=== PATIENT | male | born 1985 | race Caucasian/White ===

== ENCOUNTER 2020-02-29 09:35 | Outpatient (CLI) | payer BC, SELFPAY ==
[2020-02-29 10:17] LABS: Add Urine Microscopic? YES; Appearance Urine Clear (Clear); Bilirubin Urine Negative (Negative); Blood Urine Negative (Negative); Color Urine Yellow (Yellow); Glucose Urine UA Negative (Negative); Ketones Urine Negative (Negative); Leukocyte Esterase Ur Negative LEU/UL (NEGATIVE); Mucus Urine Heavy /lpf; Nitrate Urine Negative (Negative); Protein Urine Negative (Negative); RBC Urine 0-2 /hpf (0-2); Specific Grav Ur 1.029 (1.001-1.035); WBC Urine 0-3 /hpf (0-3)
== END 2020-02-29 09:36 | disposition home or self-care (01) ==
PROVIDERS: PCP Internal Medicine; Visit Provider Physician Assistant
DX: R30.0 Dysuria (principal)
CPT/HCPCS: 81001; 87086

== ENCOUNTER 2020-08-14 08:43 | Emergency (ER) | payer BC, SELFPAY ==
[2020-08-14] VITALS (10 sets, daily range): BP systolic 130–157; BP diastolic 75–103; PULSE 68–93; RESP 11–22; TEMP 36.7; O2SAT 93–100
--- NOTE | ~2020-08-14 | CT_ITS ---
EXAMINATION: CT soft tissue neck chest w DATE: 08/14/2020 09:57 INDICATION: Throat swelling. Dysphagia. Chest pain. TECHNIQUE: Computed tomography (CT) of the neck and chest was performed with 75 mL Omnipaque-350 intr avenous contrast. Automated exposure control and iterative reconstruction technique were employed. Th e dose-length product was 1019.55 mGy-cm. COMPARISON: CT abdomen and pelvis 09/18/2018, 08/07/2016 FINDINGS: CT NECK: The palatine tonsils are enlarged. No abscess. There is a punctate calcification in right pa latine tonsil. The epiglottis is normal. The adenoids are normal. There are no pathologically enlarge d lymph nodes. The cervical carotid arteries are normal. The orbits are normal. The paranasal sinuses are clear. The mastoid air cells are normal. The patient is edentulous. There is interbody fusion at C7-T1. CT CHEST: The lungs demonstrate minimal atelectasis in right middle lobe. There is a 3 mm nodule at l eft major fissure, likely benign. No pleural effusion. The heart size is normal. No pericardial effus ion. There is a 10 mm hyperenhancing mass in left hepatic lobe. The thoracic spine is unremarkable. IMPRESSION: 1. Enlarged palatine tonsils. No abscess. 2. 10 mm hyperenhancing liver mass. In the absence of known malignancy or chronic liver disease, this finding is likely a hemangioma or focal nodular hyperplasia. Reviewed, dictated and finalized at location A. WARE INSTALLATION ENGINEER IMPRESSION: 1. Enlarged palatine tonsils. No abscess. 2. 10 mm hyperenhancing liver mass. In the absence of known malignancy or chron ic liver disease, this finding is likely a hemangioma or focal nodular hyperpla mark.
--- NOTE | ~2020-08-14 | XR_ITS ---
EXAMINATION: XR chest 1V portable DATE: 08/14/2020 10:13 INDICATION: Shortness of breath and chest pain TECHNIQUE: frontal view of the chest was obtained. COMPARISON: Chest CT dated 08/14/2020 FINDINGS: The lungs are clear with no focal airspace opacities, pulmonary edema, pleural effusion or pneumothor ax. The cardiomediastinal silhouette is normal. Visualized bones and soft tissues are unremarkable. IMPRESSION: 1. Normal chest radiograph. Reviewed, dictated and finalized at location B. DETAILER IMPRESSION: 1. Normal chest radiograph.
--- NOTE | 2020-08-14 08:56 | ED.SOB ---
HPI - SOB/Dyspnea General Chief Complaint: Shortness of Breath/Dyspnea Stated Complaint: SOB, elevated heart rate Time Seen by Provider: 08/14/20 08:48 Source: patient Mode of arrival: ambulatory Limitations: no limitations History of Present Illness HPI Narrative: A 35-year-old male presents to the emergency department with complaints of throat pain, palpitations, racing heart and shortness of breath. Patient states that he has been dealing with tonsillitis for quite some time now. He notes that he has been on several different courses of antibiotics with no clinical improvement. Patient does endorse racing and fluttering of his heart. He states that his primary care doctor said that he needed to come into the emergency department because he has had so many antibiotics and no improvement. Related Data Allergies Allergy/AdvReac Type Severity Reaction Status Date / Time mushroom Allergy Unknown unkown Verified 08/14/20 09:57 Mushroom AdvReac Unknown Nausea and Uncoded 08/14/20 09:57 Vomiting Review of Systems Review of Systems: Narrative: CONSTITUTIONAL: Denies fever, chills, or sweats. EYES: Denies visual changes, redness, or discharge. ENT: Endorses sore throat and dysphagia. CARDIOVASCULAR: Denies chest pain, palpitations, or edema. RESPIRATORY: Denies cough or dyspnea. GASTROINTESTINAL: Denies abdominal pain, nausea, vomiting, or diarrhea. GENITOURINARY: Denies dysuria or hematuria. SKIN: Denies rash or itching. MUSCULOSKELETAL: Denies back pain, joint pain, or myalgia. NEUROLOGIC: Denies headache, numbness, dizziness, or weakness. PSYCHIATRIC: Denies anxiety or depression. PMFSH Past Medical History Medical History Meningitis Surgical History Surgical History H/O hernia repair History of dental surgery History of mandibular surgery Family History Family History Mother Diabetes mellitus Father Family history of colonic diverticulitis Social History Social History Smoking status: Current every day smoker Second hand tobacco smoke exposure: No Alcohol intake: never Substance use type: marijuana Exam Narrative: Exam Narrative: GENERAL: Well-appearing, well-nourished, and in no acute distress. HEAD: Normocephalic, atraumatic. EYES: PERRLA and EOMI. ENT: Nares clear, no rhinorrhea or epistaxis. Mucous membranes moist, endentulous. Oropharynx erythematous and edematous tonsils, slightly larger on the right. Bilateral TMs pearly buckner nonbulging NECK: Supple. No adenopathy or masses. No carotid bruits or JVD, tenderness to palpation at the left angle of the mandible CHEST: Clear to auscultation. No respiratory distress. No wheezes rales or rhonchi HEART: Regular rate and rhythm. No murmur heard. Normal peripheral pulses. ABDOMEN: Soft, nontender, nondistended, normal active bowel sounds. EXTREMITIES: Normal range of motion. No edema. SKIN: Warm, dry, no rash. NEURO: No focal deficits. Alert and oriented x3. PSYCH: Normal mood and affect. Course Vital Signs Vital signs: Vital Signs Temperature 36.7 C 08/14/20 08:54 Pulse Rate 84 08/14/20 08:54 Respiratory Rate 18 08/14/20 08:54 Blood Pressure 157/103 H 08/14/20 08:54 Pulse Oximetry 100 08/14/20 08:54 Temperature 36.7 C 08/14/20 08:54 Pulse Rate 84 08/14/20 08:54 Respiratory Rate 18 08/14/20 08:54 Blood Pressure 157/103 H 08/14/20 08:54 Pulse Oximetry 100 08/14/20 08:54 MDM - SOB/Dyspnea MDM Narrative Medical decision making narrative: In brief this 35-year-old male presented to the emergency department with complaints of sore throat and shortness of breath. Patient states that he feels his heart pounding. His labs and vitals are reassuring. Patient may be slightly dehydrated as his hemoglobin
--- NOTE | 2020-08-14 08:57 | ECG_ITS ---
Measurements Intervals [place] Rate: 105 P: 82 WI: 137 QRS: 86 QRSD: 88 T: 39 QT: 329 QTc: 436 Interpretive Statements SINUS TACHYCARDIA LEFT ATRIAL ENLARGEMENT CANNOT RULE OUT SEPTAL INFARCT, AGE INDETERMINATE BORDERLINE ST ABNORMALITY- INFERIOR LEADS BASELINE WANDER- II, III ,AVL, V2, V6 ABNORMAL ECG Electronically Signed On 08-14-2020 10:14:32 [employer]OL OPERATOR by Juan J Nino D.O.
[2020-08-14 09:05] LABS: Basophils Percent Auto 0.5 % (0.2-1.2); Eosinophils Absolute Auto 0.1 K/mm3 (0-0.3); Eosinophils Percent Auto 1.1 % (0-4.4); Hematocrit 49.7 % (42.0-52.0); Hemoglobin 17.4 g/dL (14.0-18.0); Immature Granulocyte Absolute 0.01 K/mm3 (0.00-0.031); Immature Granulocyte Percent A 0.1 % (0-0.5); Lymphocytes Absolute Auto 2.94 K/mm3 (0.9-3.2); Lymphocytes Percent Auto 39.1 % (18.3-44.2); Mean Corpuscular Volume 94.1 fl (80-100); Mean Platelet Volume 10.2 fl (7.4-10.4); Monocytes Absolute Auto 0.6 K/mm3 (0.1-0.6); Neutrophils Absolute Auto 3.8 K/mm3 (1.3-6.7); Neutrophils Percent Auto 51.2 % (45.5-73.1); Platelet Count Result 224 k/mm3 (150-375); Red Blood Count 5.28 M/mm3 (4.6-6.20); Red Cell Distribution Width 12.3 % (11.5-14.5); White Blood Count 7.5 K/mm3 (4.5-10.0)
[2020-08-14 09:16] LABS: Alanine Aminotransferase 66 U/L (4-50); Albumin Level 4.6 g/dL (3.5-5.1); Alkaline Phosphatase 105 U/L (38-126); Anion Gap 7 mmol/L (8-16); Aspartate Amino Transferase 35 U/L (17-59); Bilirubin,Total 0.9 mg/dL (0.2-1.3); Blood Urea Nitrogen 14 mg/dL (9-20); Calcium 9.4 mg/dL (8.4-10.2); Carbon Dioxide 26 mmol/L (22-30); Chloride 105 mmol/L (98-107); Estimated CRCL calculation 141 ml/min; Estimated Glomerular Filt Rate > 60; Glucose 118 mg/dL (75-110); Potassium 3.8 mmol/L (3.4-5.0); Sodium 138 mmol/L (137-145)
[2020-08-14] MEDS: LACTATED RINGERS 1,000 ML 999 ML IV CONT (10:03)
[2020-08-14] MEDS: LORazepam INJ (*CRX) 2 MG/ML VIAL 1 MG IV PUSH (10:03)
[2020-08-14] MEDS: DEXAMETHASONE SOD PHOS INJ 4 MG/ML VIAL 10 MG IV PUSH (11:22)
[2020-08-14 18:26] LABS: SARS-CoV-2 RNA PCR Negative
== END 2020-08-14 11:25 | disposition home or self-care (01) ==
PROVIDERS: Emergency Provider Emergency Medicine; PCP Physician Assistant
DX: J03.90 Acute tonsillitis, unspecified (principal); Z20.822 Contact with and (suspected) exposure to COVID-19; R16.0 Hepatomegaly, not elsewhere classified; F17.200 Nicotine dependence, unspecified, uncomplicated; R00.0 Tachycardia, unspecified; R94.31 Abnormal electrocardiogram [ECG] [EKG]
CPT/HCPCS: 36415; 70491; 71045; 71260; 80053; 85025; 93005; 96361; 96374; 96375; 99284; C9803; J1100; J2060; J7120; Q9967; U0003; U0005

== ENCOUNTER → 2020-09-09 05:59 | Outpatient (CLI) | payer BC, SELFPAY ==
[2020-09-09 19:10] LABS: SARS-CoV-2 RNA PCR Negative
== END ==
PROVIDERS: PCP Physician Assistant; Visit Provider Otolaryngology
DX: Z01.812 Encounter for preprocedural laboratory examination (principal); Z20.822 Contact with and (suspected) exposure to COVID-19
CPT/HCPCS: C9803; U0003; U0005

== ENCOUNTER 2020-09-12 01:07 | Day surgery (SDC) | payer BC, SELFPAY ==
[2020-09-06 17:59] VITALS: BMI 27.4
--- NOTE | 2020-09-11 09:26 | P.PNAN_ITS ---
Anes - Initial Pre Proc Eval Procedure: Operation Date: 09/12/20 09:45 Proposed Procedures p Tonsillectomy - Roger Khan MD Date/Time: 09/11/20 09:26 Surgeon: Roger Khan MD Pre Op Diagnosis: chronic tonsilitis Patient Data Age: 35 Gender: M Height: 1.96 m Weight: 105 kg Allergies Allergy/AdvReac Type Severity Reaction Status Date / Time mushroom Allergy Unknown Nausea and Verified 09/12/20 07:21 Vomiting bee venom protein (honey bee) Allergy Nausea Verified 09/12/20 07:21 Home Medications Medication Instructions Recorded Confirmed Type No Home Medications 09/12/20 09/12/20 History Patient hx anesthesia problems: post op nausea/vomiting Family hx anesthesia problems: none PMFSH Past Medical History Medical History Meningitis Overweight (BMI 25.0-29.9) Surgical History Surgical History H/O hernia repair History of dental surgery History of mandibular surgery Family History Family History Mother Diabetes mellitus Father Family history of colonic diverticulitis Social History Social History Smoking packs per day: 0.5 Smoking cigarettes per day: 10.0 Years smoked: 15 Smoking pack-years: 7.50 Smoking status: Current every day smoker Tobacco type: cigarettes Second hand tobacco smoke exposure: No Alcohol intake: never Substance use type: marijuana Living arrangements: with family Gender identity (if verbalized by the patient): Male Sexual Orientation (if Verbalized by the Patient): Straight or Heterosexual Spiritual care concerns: No Anes - Eval Final PreProcedure Day of Procedure 09/11/20 09:26 Patient weight: overweight Heart: regular rate and rhythm Lungs: clear to auscultation and normal air movement Airway: Mallampati scale class II Neurological: alert and oriented Last oral intake: >/= 8 hours ASA classification: II Emergent: no Anesthetic plan: proceed Anesthesia type and monitoring: general GIVS and standard monitoring Informed Consent: The patient's anesthetic plan and its attendant risks and benefits were discussed with the patient/family/POA. Questions were solicited an d answers provided to the satisfaction of the patient/family/POA.
--- NOTE | 2020-09-12 05:54 | PM.HPGS ---
History of Present Illness History of Present Illness Consent: Risks, benefits, and alternatives have been discussed and questions answered. Patient agrees to proceed with procedure. Chief complaint: chronic tonsilitis Narrative: Smooth Morse is a 35 year old male recurring episodes of tonsillitis treated ears question antibiotics Review of Systems Review of Systems: All systems reviewed & are unremarkable except as noted in HPI and below PMFSH Past Medical History Medical History Meningitis Overweight (BMI 25.0-29.9) Surgical History Surgical History H/O hernia repair History of dental surgery History of mandibular surgery Family History Family History Mother Diabetes mellitus Father Family history of colonic diverticulitis Social History Social History Smoking packs per day: 0.5 Smoking cigarettes per day: 10.0 Years smoked: 15 Smoking pack-years: 7.50 Smoking status: Current every day smoker Tobacco type: cigarettes Second hand tobacco smoke exposure: No Alcohol intake: never Substance use type: marijuana Living arrangements: with family Gender identity (if verbalized by the patient): Male Sexual Orientation (if Verbalized by the Patient): Straight or Heterosexual Spiritual care concerns: No Meds Home Medications and Allergies Home Medications Medication Instructions Recorded Confirmed Type cefixime 400 mg capsule 400 mg PO DAILY #9 cap 08/29/20 09/06/20 Rx Allergies Allergy/AdvReac Type Severity Reaction Status Date / Time mushroom Allergy Unknown Nausea and Verified 09/05/20 14:40 Vomiting bee venom protein (honey bee) Allergy Nausea Verified 09/05/20 14:40 Exam HENMT: Other: has examination reveals enlarged tonsils they are markedly cryptic in nature mouth oropharynx otherwise is normal tongue is normal chest clear heart without murmurs, hypertrophic tonsils chronic tonsillitis plan tonsillectomy risks procedure been explained consent obtained Assessment and Plan Additional Plan plan is a tonsillectomy
--- NOTE | 2020-09-12 05:56 | WPDHPUPDATE1 ---
History and Physical Update Update Date/Time: 09/12/20 05:56 History and Physical has been reviewed, including an updated exam of the patient. There are NO changes in the patient's condition. Risks, benefits, and alternatives have been discussed and questions answered. Patient agrees to proceed with procedure.
[2020-09-12] MEDS: ACETAMINOPHEN 500 MG TABLET 1000 MG PO (07:31)
[2020-09-12] MEDS: LACTATED RINGERS 1,000 ML 30 ML IV CONT (07:40)
[2020-09-12 07:46] VITALS: BP 134/88; PULSE 104; RESP 16; TEMP 37.6; O2SAT 99
[2020-09-12] MEDS: FAMOTIDINE 20 MG/2 ML VIAL IV PUSH (08:03)
[2020-09-12] MEDS: SCOPOLAMINE 1.5 MG PATCH TRANSDERM (08:04)
--- NOTE | 2020-09-12 09:20 | PM.PROC ---
Procedure Note - Detailed Date of procedure: 09/12/20 Pre-op diagnosis: chronic tonsilitis Post-op diagnosis: same Procedure performed: Tonsillectomy Description of procedure: Patient was prepped and draped in usual fashion after induction of anesthesia. The McIvor mouth gag was inserted. The tonsils were removed dissection technique hemostasis was obtained electrocautery. The mouth was inspected for bleeding. When stablized patient was awaken and brought to the recovery room in good condition. Anesthesia: GLMA Surgeon: Roger Khan MD Estimated blood loss (mL): 15 Drains: No Packing: No Pathology: none sent Complications: No immediate complications Condition: stable Disposition: PACU Findings: Chronic tonsillitis
[2020-09-12 09:22] VITALS: BP 127/76; PULSE 70; RESP 18; TEMP 36.2; O2SAT 97
[2020-09-12 09:30] VITALS: BP 156/85; PULSE 110; RESP 20; O2SAT 100
[2020-09-12] MEDS: fentaNYL CITRATE INJ (*CRX) 100 MCG/2 ML VIAL 25 MCG IV PUSH ×4 (09:35→09:43)
[2020-09-12 09:50] VITALS: BP 136/90; PULSE 98; RESP 20; O2SAT 98
[2020-09-12 09:55] VITALS: BP 131/82; PULSE 96; RESP 16
[2020-09-12 10:17] VITALS: BP 130/80; PULSE 95; RESP 16
== END 2020-09-12 10:25 | disposition home or self-care (01) ==
PROVIDERS: PCP Physician Assistant; Visit Provider Otolaryngology
PROC: (CPT 42826; principal; 2020-09-12 09:00)
DX: J35.01 Chronic tonsillitis (principal); F17.210 Nicotine dependence, cigarettes, uncomplicated
CPT/HCPCS: 42826; 88302; A9270; C9803; J0330; J1100; J2250; J2405; J2704; J3010; J7120; U0003; U0005